=== PATIENT | female | born 1970 | race Caucasian/White ===

== ENCOUNTER 2017-03-20 20:47 | Emergency (ER) | payer MEDICARE, OTHER ==
[2017-03-20] MEDS ORDERED: CLINDAMYCIN HCL 150 MG CAPSULE PO ONE (21:06)
[2017-03-20] MEDS ORDERED: NEOMYCIN SU/BACITRAC ZN/POLY 1 EACH OINT.PACK TP ONE (21:19)
--- NOTE | 2017-03-20 21:19 | ED Physician Documentation ---
Lower Extremity Problem - HISTORIAN Historian: patient, spouse - [facility] Stated Complaint: red toe Chief Complaint: Lower Extremity Problem Additional Information: Noticed red toes this evening. Does not check her feet, but has no feeling in them 2/2 neuropathy, DM. Has appt with Renée Stern on Thursday, March 23. Location of Injury: R foot Onset: other Recent Injury: No - ROS CONST: no problems - PAST HX Past History: other (IDDM, sleep apnea, HTN) Allergies/Adverse Reactions: Allergies Allergy/AdvReac Type Severity Reaction Status Date / Time carbamazepine [From Tegretol] Allergy Verified 03/20/17 21:02 lithium [[place]] Allergy Verified 03/20/17 21:02 Home Medications: Ambulatory Orders Medication Instructions Recorded Lamotrigine 25 mg PO DAILY 11/10/12 Pregabalin [Lyrica] 225 mg PO BID 11/10/12 Aripiprazole [Abilify] 1 mg PO HS 05/25/16 Buspirone HCl [BUSPAR] 10 mg PO BID 05/25/16 Diclofenac Sodium [Voltaren] 75 mg PO BID 05/25/16 Ferrous Sulfate [Feosol] 325 mg PO DAILY 05/25/16 Glimepiride [Amaryl] 4 mg PO BID 05/25/16 Levothyroxine Sodium [Unithroid] 125 mcg PO DAILY 05/25/16 Lisinopril [Prinivil] 5 mg PO DAILY 05/25/16 Metformin HCl [Glucophage] 1,[place] [address] 05/25/16 Pnv with Ca,No.72/Iron/FA 1 tab PO DAILY 05/25/16 [ Plus Multivitamin Tab] Prazosin HCl [Minipress] 6 mg PO HS 05/25/16 Ranitidine HCl [Zantac] 75 mg PO DAILY 05/25/16 Sertraline HCl [Zoloft] 100 mg PO DAILY 05/25/16 - SOCIAL HX Smoking History: non-smoker - FAMILY HX Family History: no significant history - VITAL SIGNS Vital Signs: Vital Signs Temp Pulse Resp BP Pulse Ox 122/71 05/25/16 21:48 - REVIEWED ASSESSMENTS Nursing Assessment Reviewed: Yes Vitals Reviewed: Yes ED Results Lab/Radiology - Orders Orders: ED Orders Category Date Time Status Chem Sticks Med 03/20/17 20:56 Ordered 1 each CHEMQ PRN Clindamycin HCl [Cleocin] Med 03/20/17 21:06 Once 600 mg PO NOW ONE Lower Extremity Problem - EXAM General Appearance: morbidly obese Hips: bilateral hip: normal range of motion (gait) Ankle: bilateral: normal inspection (swelling, R>L) Foot: right foot: swelling (periungual, 1st toe; erythema between toes 1, 2, 3.) , left foot: other (faint erythema between 1 and 2 toes) EENT: eye inspection normal, ENT inspection normal RESPIRATORY: no resp distress VASCULAR: no vascular compromise, pulses full/equal NEURO/PSYCH: CN's nml as tested, motor nml, sensation nml Discharge Clincal Impression: Perionychia of toe Qualifiers: Laterality: right Qualified Code(s): L03.031 - Cellulitis of right toe Referrals: Renée Stern INDUSTRIAL ECONOMICS PROFESSOR [Primary Care Provider] - 2 Days Additional Instructions: Take all the antibiotics as prescribed until they are completely gone. Ask Renée Stern to check your feet to be sure you are getting better. Home Medications: Ambulatory Orders Lamotrigine 25 mg PO DAILY 11/10/12 Pregabalin [Lyrica] 225 mg PO BID 11/10/12 Aripiprazole [Abilify] 1 mg PO HS 05/25/16 Buspirone HCl [BUSPAR] 10 mg PO BID 05/25/16 Diclofenac Sodium [Voltaren] 75 mg PO BID 05/25/16 Ferrous Sulfate [Feosol] 325 mg PO DAILY 05/25/16 Glimepiride [Amaryl] 4 mg PO BID 05/25/16 Levothyroxine Sodium [Unithroid] 125 mcg PO DAILY 05/25/16 Lisinopril [Prinivil] 5 mg PO DAILY 05/25/16 Metformin HCl [Glucophage] 1,[place] [address] 05/25/16 Pnv with Ca,No.72/Iron/FA [ Plus Multivitamin Tab] 1 tab PO DAILY Prazosin HCl [Minipress] 6 mg PO HS 05/25/16 Ranitidine HCl [Zantac] 75 mg PO DAILY 05/25/16 Sertraline HCl [Zoloft] 100 mg PO DAILY 05/25/16 Condition: Fair Disposition: 01 HOME, SELF-CARE Decision to Admit: NO Decision Time: 21:17
[2017-03-20 22:10] VITALS: BP 123/61
== END 2017-03-20 21:46 | disposition home or self-care (01) ==
LOC: ED 20:47
DX: L03.031 Cellulitis of right toe (principal); E11.9 Type 2 diabetes mellitus without complications
CPT/HCPCS: 99283; A9270

== ENCOUNTER 2017-11-14 16:04 | Emergency (ER) | payer MEDICARE, OTHER ==
[2017-11-14 17:24] VITALS: BP 125/68
--- NOTE | 2017-11-17 23:14 | ED Physician Documentation ---
General Adult - HISTORIAN Historian: patient - HPI Stated Complaint: high blood sugars Chief Complaint: General Adult Onset: days ago (2-3) Timing: still present Severity: moderate Further Comments: yes (dry mouth freq ua loose stools blurred vision- actuallyl poly uria poly phagia poly dypsia) - ROS CONST: other EYES/ENT: problems with vision CVS/RESP: chest pain, shortness of breath (occasion) GI/: problems urinating MS/SKIN/LYMPH: none NEURO/PSYCH: dizziness, tingling, numbness, anxiety - PAST HX Past History: hypertension Other History: diabetes Type 1, other (depression hypo thryoid fibromyalgia) Surgeries/Procedures: cholecystectomy Allergies/Adverse Reactions: Allergies Allergy/AdvReac Type Severity Reaction Status Date / Time carbamazepine [From Tegretol] Allergy Unknown Verified 11/14/17 16:37 lithium [[place]] Allergy Unknown Verified 11/14/17 16:37 Home Medications: Ambulatory Orders Medication Instructions Recorded Buspirone HCl [BUSPAR] 10 mg PO BID 05/25/16 Ferrous Sulfate [Feosol] 325 mg PO DAILY 05/25/16 Glimepiride [Amaryl] 4 mg PO BID 05/25/16 Levothyroxine Sodium [Unithroid] 125 mcg PO DAILY 05/25/16 Lisinopril [Prinivil] 5 mg PO DAILY 05/25/16 Aripiprazole [Abilify] 5 mg PO D 03/20/17 Cetirizine HCl [Zyrtec] 10 mg PO HS 03/20/17 Cholecalciferol [Vitamin D-3] 1,000 unit PO D 03/20/17 Hydrochlorothiazide 25 mg PO D 03/20/17 [Hydrochlorothiazide] Meloxicam [Mobic] 7.5 mg PO BID 03/20/17 Prazosin HCl [Minipress] 5 mg PO HS 03/20/17 Pregabalin [Lyrica] 150 mg PO BID 03/20/17 Sertraline HCl [Zoloft] 200 mg PO DAILY 03/20/17 - SOCIAL HX Smoking History: non-smoker Alcohol Use: none Drug Use: none - FAMILY HX Family History: No - VITAL SIGNS Vital Signs: Vital Signs Temp Pulse Resp BP Pulse Ox 97.9 F 85 16 125/68 98 11/14/17 17:17 11/14/17 17:17 11/14/17 17:17 11/14/17 17:17 11/14/17 17:17 - REVIEWED ASSESSMENTS Nursing Assessment Reviewed: Yes Vitals Reviewed: Yes General Adult Physical Exam - PHYSICAL EXAM GENERAL APPEARANCE: moderate distress EENT: eye inspection normal, TM's nml. No: pale conjunctivae, anisocoria, pharyngeal erythema, exudate NECK: normal inspection, supple RESPIRATORY: no resp distress, breath sounds normal CVS: reg rate & rhythm ABDOMEN: soft, tenderness (slight geneeralized) SKIN: warm/dry, normal color. No: cyanosis, diaphoresis, jaundice EXTREMITIES: non-tender, edema NEURO: oriented X3, motor nml, sensation nml Discharge Clincal Impression: diabetes uncontrolled Referrals: Renée Stern FNP [Primary Care Provider] - 2 Days Comments: extra time spent in counselling re 'BECOME AN EXPERT IN DIABETIC NUTRITION" Condition: Fair Disposition: 01 HOME, SELF-CARE Decision to Admit: NO Decision Time: 16:57
== END 2017-11-14 17:10 | disposition home or self-care (01) ==
LOC: ED 16:04
DX: E10.65 Type 1 diabetes mellitus with hyperglycemia (principal); I10 Essential (primary) hypertension; E03.9 Hypothyroidism, unspecified; M79.7 Fibromyalgia; F32.9 Major depressive disorder, single episode, unspecified
CPT/HCPCS: 99282; 99283

== ENCOUNTER 2018-03-13 14:11 | Emergency (ER) | payer MEDICARE, OTHER ==
[2018-03-13 14:40] VITALS: BP 136/70
--- NOTE | 2018-03-13 14:51 | ED Physician Documentation ---
General Adult - HISTORIAN Historian: patient - HPI Stated Complaint: infected toe Chief Complaint: Lower Extremity Problem (r 2nd toe infection) Additional Information: 47yo white female who noticed swelling and erythem to her right 2nd toe. Patient has DM with neuropathy. Patient wears her shoes all the time. Has not had her shoes off for 3-4 week, at that time appeared normal. No fever or chills noted. BS have bee running in the 120s. Patient was told to put an apparatus to help straighten he toe which strapped on her toe. The toe has become swollen and strap cut into her toe as it swelled. Now it is swollen and tender with some redness to the dorsum of the foot. Timing: still present Severity: moderate - ROS CONST: no problems. denies: fever, chills - PAST HX Past History: other (sleep apnea, arthritis, fibromyalgia,) Other History: diabetes Type 2, other (hypothyroidism) Surgeries/Procedures: cholecystectomy, other (left rotator cuff surgeery) Allergies/Adverse Reactions: Allergies Allergy/AdvReac Type Severity Reaction Status Date / Time carbamazepine [From Tegretol] Allergy Unknown Verified 03/13/18 14:48 lithium [[place]] Allergy Unknown Verified 03/13/18 14:48 Home Medications: Ambulatory Orders Medication Instructions Recorded Buspirone HCl [BUSPAR] 10 mg PO BID 05/25/16 Ferrous Sulfate [Feosol] 325 mg PO DAILY 05/25/16 Glimepiride [Amaryl] 4 mg PO BID 05/25/16 Levothyroxine Sodium [Unithroid] 125 mcg PO DAILY 05/25/16 Lisinopril [Prinivil] 5 mg PO DAILY 05/25/16 Aripiprazole [Abilify] 5 mg PO D 03/20/17 Cetirizine HCl [Zyrtec] 10 mg PO HS 03/20/17 Cholecalciferol [Vitamin D-3] 1,000 unit PO D 03/20/17 Hydrochlorothiazide 25 mg PO D 03/20/17 [Hydrochlorothiazide] Meloxicam [Mobic] 7.5 mg PO BID 03/20/17 Prazosin HCl [Minipress] 5 mg PO HS 03/20/17 Pregabalin [Lyrica] 150 mg PO BID 03/20/17 Sertraline HCl [Zoloft] 200 mg PO DAILY 03/20/17 Cefdinir 300 mg PO BID #14 capsule 03/13/18 Cholecalciferol [Vitamin D-3] 1,000 unit PO DAILY 03/13/18 - SOCIAL HX Smoking History: non-smoker Alcohol Use: none Drug Use: none - FAMILY HX Family History: No - VITAL SIGNS Vital Signs: Vital Signs Temp Pulse Resp BP Pulse Ox 97.9 F 79 20 136/70 95 03/13/18 14:30 03/13/18 14:30 03/13/18 14:30 03/13/18 14:30 03/13/18 14:30 - REVIEWED ASSESSMENTS Nursing Assessment Reviewed: Yes Vitals Reviewed: Yes Progress - Progress Progress: Patient was advised that her cellulitis related to be watched closely. If symptoms were not improvement in 24 to 48 hours she need to have it reevaluated and possibly may need to be admitted for IV antibiotic therapy. Patient was also advised that she may need to see a instructional support specialist for her toe. What is vied not to wear any shoes until told to do so to keep the pressure off of her toe. General Adult Physical Exam - PHYSICAL EXAM GENERAL APPEARANCE: no distress RESPIRATORY: no resp distress, chest non-tender, breath sounds normal. No: wheezes, rales, rhonchi CVS: reg rate & rhythm, heart sounds normal, equal pulses, no murmur, no gallop SKIN: warm/dry, other (left foot mildy swollen with some erythm to the dorsum of her foot. @nd toe is swollen and erythemaous with deep crease over proximal phalanx, skin appears intact.) EXTREMITIES: non-tender NEURO: oriented X3, mood/affect nml, cognition normal Discharge Clincal Impression: Cellulitis and abscess of foot excluding toe Prescriptions: Cefdinir 300 mg PO BID #14 capsule Referrals: Renée Setrn FNP [Primary Care Provider] - 2 Days Additional Instructions: To see Renée Stern early next week for further evaluation. Take cefdinir as directed. Keep foot elevated. Soak in slightly warm water with dish soap twice a day for 30 minutes. If the redness gets worse to returnt to the ED. Wear stocking at this time and leave show off. Look at your feet on a daily basis. Condition: Stable Disposition: 01 HOME, SELF-CARE Decision to Admit: NO Date of Decison to Admit: 03/13/18 Decision Time: 15:07
== END 2018-03-13 15:24 | disposition home or self-care (01) ==
LOC: ED 14:11
DX: L03.115 Cellulitis of right lower limb (principal); L02.611 Cutaneous abscess of right foot
CPT/HCPCS: 99282